=== PATIENT | female | born 1965 | race Asian ===

== ENCOUNTER 2018-12-04 10:59 | Emergency (ER) | payer OTHER ==
[~2018-12-04] VITALS: Ht 160 cm; Wt 73.5 kg
[2018-12-04 11:06] VITALS: Ht 160 cm; Wt 73.5 kg
[2018-12-04 11:51] VITALS: BP 148/82
== END 2018-12-04 11:51 | disposition home or self-care (01) ==
LOC: ED 10:59
DX: J34.0 Abscess, furuncle and carbuncle of nose (principal); E11.9 Type 2 diabetes mellitus without complications
CPT/HCPCS: 82962